=== PATIENT | male | born 1980 | race Caucasian/White ===

== ENCOUNTER 2023-07-02 22:40 | Emergency (ER) | payer SELFPAY ==
--- NOTE | 2023-07-02 23:50 | ED ---
Extremity Problem HPI <Cr Escobar - Last Filed: 07/03/23 06:34> - General Source: patient Mode of arrival: ambulatory Limitations: no limitations <Oumou Hsusein - Last Filed: 07/04/23 04:08> - General Chief complaint: Extremity Problem,Nontraumatic Stated complaint: Blood clot in Left leg Time Seen by Provider: 07/02/23 23:07 - History of Present Illness Initial comments: 42-year-old male presenting with chief complaint of left lower extremity pain and swelling. Symptoms started about 2 days ago. Patient notes that he has been a wound care patient since April. Prior to this he was in a compression wrapping. He states that since removing the compression wrapping he has had increased swelling to the area, however he was concerned when it appeared to be red and warm to the touch. He also notes increasing pain in the calf. Patient states he is concerned about blood clot due to his size and his sedentary lifestyle. He has no history of blood clot or coagulopathy. No recent surgery or travel. No chest pain, difficulty breathing, palpitations, fever, chills, nausea, vomiting. (Oumou Hussein) - Related Data Previous Rx's Medication Instructions Recorded Acetaminophen-Codeine 300-30mg 1 tab PO Q4H PRN #20 tablet 09/21/15 [Tylenol #3] Ibuprofen [Motrin] 600 mg PO Q8HR PRN #30 tab 09/21/15 Penicillin V Potassium [Pen Vee K] 500 mg PO QID #40 tab 09/21/15 Sulfamethox-Tmp 800-160Mg [Bactrim 2 each PO Q12HR #28 tab 07/03/23 Ds] Allergies Allergy/AdvReac Type Severity Reaction Status Date / Time No Known Allergies Allergy Verified 09/21/15 16:26 Review of Systems ROS Other: All systems not noted in ROS Statement are negative. <Cr Escobar - Last Filed: 07/03/23 06:34> ROS Other: All systems not noted in ROS Statement are negative. <Oumou Hussein - Last Filed: 07/04/23 04:08> ROS Statement: Those systems with pertinent positive or pertinent negative responses have been documented in the HPI. Past Medical History Past Medical History: No Reported History Additional Past Medical History / Comment(s): obese History of Any Multi-Drug Resistant Organisms: MRSA Date of last positivie culture/infection: 05/05/23 MDRO Source:: Left Leg Past Surgical History: Appendectomy, Heart Catheterization Additional Past Surgical History / Comment(s): oral surgery Past Psychological History: No Psychological Hx Reported Past Alcohol Use History: Occasional Past Drug Use History: None Reported <Oumou Hussein - Last Filed: 07/04/23 04:08> General Exam Limitations: no limitations General appearance: alert, in no apparent distress Head exam: Present: atraumatic, normocephalic Eye exam: Present: normal appearance Neck exam: Present: normal inspection Respiratory exam: Present: normal lung sounds bilaterally. Absent: respiratory distress, wheezes, rales, rhonchi, stridor Cardiovascular Exam: Present: regular rate, normal rhythm, normal heart sounds. Absent: systolic murmur, diastolic murmur, rubs, gallop, clicks Left Lower Leg exam: Present: tenderness, swelling, erythema Neurological exam: Present: alert, oriented X3 Psychiatric exam: Present: normal affect, normal mood <Oumou Hussein - Last Filed: 07/04/23 04:08> Course Vital Signs 07/02/23 07/03/23 07/03/23 22:41 00:12 02:08 Temperature 97.9 F Pulse Rate 95 80 94 Respiratory 18 18 20 Rate Blood Pressure 183/98 172/93 162/88 O2 Sat by Pulse 99 95 99 Oximetry 07/03/23 06:18 Temperature 97.7 F Pulse Rate 91 Respiratory 19 Rate Blood Pressure 130/64 O2 Sat by Pulse 97 Oximetry Medical Decision Making <Oumou Hussein - Last Filed: 07/04/23 04:08> - Medical Decision Making Was pt. sent in by a medical professional or institution (, PA, CRIMINAL JUSTICE DEPARTMENT CHAIR, urgent care, hospital, or correction...) When possible be specific @ -Transfer from [facility] Did you speak to anyone other than the patient for history (EMS, parent, family, police, friend...)? What history was obtained from this source @ -No Did you review nursing and triage notes (agree or disagree)? Why? @ -I reviewed and agree with nursing and triage notes Were old charts reviewed (outside hosp., previous admission, EMS record, old EKG, old radiological studies, urgent care reports/EKG's, correction records)? Report findings @ -Documentation from [facility] visit today is reviewed Differential Diagnosis (chest pain, altered mental status, abdominal pain women, abdominal pain men, vaginal bleeding, weakness, fever, dyspnea, syncope, headache, dizziness, GI bleed, back pain, seizure, CVA, palpatations, mental health, musculoskeletal)? @ -Differential Musculoskeletal Muscular strain, contusion, ligament sprain, fracture, arthritis, septic arthritis, bursitis, cellulitis, muscle spasm, nerve compression, DVT, arterial occlusion, herpes zoster, electrolyte abnormality, tumor.... This is not meant to be in all inclusive list EKG interpreted by me (3pts min.). @ -As above X-rays interpreted by me (1pt min.). @ -None done CT interpreted by me (1pt min.). @ -None done U/S interpreted by me (1pt. min.). @ -Report pending What testing was considered but not performed or refused? (CT, X-rays, U/S, labs)? Why? @ -None What meds were considered but not given or refused? Why? @ -None Did you discuss the management of the patient with other professionals (professionals i.e. , PA, CRIMINAL JUSTICE DEPARTMENT CHAIR, lab, RT, psych nurse, social media executive, county commissioner, teacher, hydrological technical officer, bottle caser)? Give summary @ -No Was smoking cessation discussed for >3mins.? @ -No Was critical care preformed (if so, how long)? @ -No Were there social determinants of health that impacted care today? How? (Homelessness, low income, unemployed, alcoholism, drug addiction, transportation, low edu. Level, literacy, decrease access to med. care, penitentiary, rehab)? @ -No Was there de-escalation of care discussed even if they declined (Discuss DNR or withdrawal of care, Hospice)? DNR status @ -No What co-morbidities impacted this encounter? (DM, HTN, Smoking, COPD, CAD, Cancer, CVA, ARF, Chemo, Hep., AIDS, mental health diagnosis, sleep apnea, morbid obesity)? @ -None Was patient admitted / discharged? Hospital course, mention meds given and route, prescriptions, significant lab abnormalities, going to OR and other pertinent info. @ -42-year-old male presenting with chief complaint of his left lower leg swelling and tenderness. He presents as a transfer from [facility] due to lack of ultrasound. Patient has had pain and swelling to the left lower extremity for about 2 days and he is concerned for blood clot. He has been a wound care patient and was wearing compression dressing, this has since been removed. Ultrasound is obtained report is pending. Patient signed out to Dr. Escobar (Oumou Hussein) Disposition Is patient prescribed a controlled substance at d/c from ED?: No <Cr Escobar - Last Filed: 07/03/23 06:34> <Oumou Hussein - Last Filed: 07/04/23 04:08> Clinical Impression: Leg edema, Cellulitis Disposition: HOME SELF-CARE Condition: Good Instructions (If sedation given, give patient instructions): Cellulitis (ED), Leg Edema (ED) Prescriptions: Sulfamethox-Tmp 800-160Mg [Bactrim Ds] 2 each PO Q12HR #28 tab Referrals: Edin Macedo, [Primary Care Provider] - 1-2 days
--- NOTE | 2023-07-03 06:07 | US ---
EXAM: US Duplex Left Lower Extremity Veins CLINICAL HISTORY: Reason: swelling and pain TECHNIQUE: Real-time duplex ultrasound scan of the left lower extremity veins integrating B-mode two-dimensional vascular structure, Doppler spectral analysis, color flow Doppler imaging and compression. Exam limited by patient body habitus. COMPARISON: No relevant prior studies available. FINDINGS: Deep veins: No DVT in the visualized common femoral vein, proximal and mid portions of the femoral vein, the proximal deep femoral vein or the popliteal vein. The distal left femoral vein was not completely visualized, and could not be compressed. The visualized veins demonstrate normal color flow, are normally compressible, with normal phasic flow and/or augmentation response. Superficial veins: Unremarkable. No thrombus in the visualized great saphenous vein. Soft tissues: No acute findings. No popliteal cyst. IMPRESSION: No evidence of deep vein thrombosis within the left lower extremity. Limited evaluation of the distal left femoral vein due to patient body habitus.
[2023-07-03 06:39] VITALS: BP 130/64; PULSE 91; RESP 19; TEMP 97.7
== END 2023-07-03 06:48 | disposition home or self-care (01) ==
LOC: EC 22:40
DX: L03.116 Cellulitis of left lower limb (principal)
CPT/HCPCS: 99284